=== PATIENT | male | born 1965 | race Caucasian/White ===

== ENCOUNTER 2023-09-24 15:28 | Emergency (ER) | payer MEDICAID ==
[~2023-09-24] VITALS: Ht 185.4 cm; Wt 72.6 kg
[2023-09-24 15:41] VITALS: O2SAT 97
[2023-09-24] MEDS ORDERED: PERM60CR4 TP (16:48)
[2023-09-24] MEDS ORDERED: GLY/480L3 TP (16:48)
[2023-09-24] MEDS ORDERED: DIPH25CA83 PO (16:48)
== END 2023-09-24 16:54 | disposition home or self-care (01) ==
LOC: ER 15:32
DX: B86 Scabies (principal); R21 Rash and other nonspecific skin eruption; L29.9 Pruritus, unspecified; Z59.00 Homelessness unspecified
CPT/HCPCS: A4606; A4663